=== PATIENT | female | born 1945 | race Caucasian/White ===

== ENCOUNTER 2019-12-23 21:42 | Inpatient (IN) | payer OTHER, MEDICAID, SELFPAY ==
[~2019-12-23] VITALS: Ht 165.1 cm; Wt 134.7 kg
[2019-12-23 21:42] VITALS: BP_SYST 126
[~2019-12-23 21:42] MED LIST: ACET-73 PO; ARIP5TAB10 PO; CALMO120 TP; CAT.1 PO; DOCU250C71 PO; FAMO20TA8 PO; HEPA500015 SUBCUT; LEVO750T45 PO; LEVO75TA7 PO; LISI-600 PO; LORA-258 PO; LOSA25TA18 PO; MOM PO; MONT10TA22 PO; NEU400 PO; OMEP20CA15 PO; SERT25TA PO; SERT50TA PO; ZOLP5TAB2 PO
--- NOTE | 2019-12-24 00:21 | NUR ---
Patient to ER bed 8 to gown for evaluation. Side rails up.
--- NOTE | 2019-12-24 00:30 | NUR ---
Dr. Charles bedside for pt eval
--- NOTE | 2019-12-24 00:35 | NUR ---
Pt G[facility]BER from [facility] her for medical clearance, heading to [facility] after cleared. No other complaints noted VSS no s/s of acute distress Resting on gurney rails up
[2019-12-24 01:09] LABS: BASOPHILS % (AUTO) 0.4 % (0.0-2.0); EOSINOPHILS # (AUTO) 0.1 K/uL (0.0-0.4); EOSINOPHILS % (AUTO) 1.6 % (0.0-4.0); HEMATOCRIT 34.7 % (36-48); HEMOGLOBIN 10.6 g/dL (12.0-16.0); LYMPHOCYTES # (AUTO) 1.2 K/uL (1.0-5.5); LYMPHOCYTES % (AUTO) 14.9 % (20.5-51.5); MEAN CORPUSCULAR HEMOGLOBIN 22 pg (27-31); MEAN CORPUSCULAR HGB CONC 31 % (32-36); MEAN CORPUSCULAR VOLUME 73 fL (79.0-98.0); MONOCYTES % (AUTO) 12.4 % (1.7-9.3); NEUTROPHILS # (AUTO) 5.9 K/uL (1.8-7.7); NEUTROPHILS % (AUTO) 70.7 % (40.0-70.0); PLATELET COUNT (AUTO) 318 K/uL (130-430); RED BLOOD CELL COUNT(AUTO) 4.74 MIL/uL (4.2-6.2); RED CELL DISTRIBUTION WIDTH 18.9 % (9.0-15.0); WHITE BLOOD COUNT (AUTO) 8.3 K/uL (4.8-10.8)
[2019-12-24 01:24] LABS: ANION GAP 6 (5-15); CALCIUM 8.7 mg/dL (8.4-11.0); CHLORIDE 104 mmol/L (98-107); CREATININE 0.68 mg/dL (0.55-1.30); GLUCOSE 113 mg/dL (70-99); POTASSIUM 3.8 mmol/L (3.5-5.1); SODIUM SERUM 137 mmol/L (136-145); UREA NITROGEN, BLOOD 21 mg/dL (8-21)
[2019-12-24 01:29] LABS: ALANINE AMINOTRANSFERASE 14 U/L (12-78); ALBUMIN 2.7 g/dL (3.4-4.8); ALCOHOL, BLOOD < 3 mg/dL (<10); ASPARTATE AMINOTRANSFERASE 16 U/L (10-37); CHOLESTEROL 154 mg/dL (<200); HDL CHOLESTEROL 44 mg/dL (>55); LDL CHOLESTEROL 99 mg/dL (<100); TOTAL BILIRUBIN 0.4 mg/dL (0.0-1.0); TRIGLYCERIDES 68 mg/dL (30-150)
[2019-12-24 01:31] LABS: ACETAMINOPHEN < 1 ug/mL (1-30)
[2019-12-24 01:37] LABS: BILIRUBIN,URINE NEGATIVE (NEGATIVE); BLOOD, URINE 2+ (NEGATIVE); CLARITY/URINE CLEAR (CLEAR); COLOR,URINE YELLOW (YELLOW); GLUCOSE,URINE NEGATIVE (NEGATIVE); KETONES,URINE TRACE (NEGATIVE); LEUKOCYTE ESTERASE ,URINE 3+ (NEGATIVE); NITRITE, URINE POSITIVE (NEGATIVE); PROTEIN URINE 1+ (NEGATIVE)
--- NOTE | 2019-12-24 01:38 | NUR ---
Pt possible shingles during skin assessment, studio operations engineer in charge and Dr. Charles aware
[2019-12-24 01:43] LABS: BACTERIA,URINE MANY /HPF (None Seen); RBC,URINE 50-80 /HPF (0-3); WBC,URINE >100 /HPF (0-3)
[2019-12-24 01:49] LABS: BARBITURATE, URINE NEGATIVE (NEG <=200); BENZODIAZEPINE, URINE NEGATIVE (NEG <=150); CANNABINOID, URINE NEGATIVE (NEG <=50); COCAINE, URINE NEGATIVE (NEG <=150); METHAMPHETAMINES SCREEN,URINE NEGATIVE (NEG <=500); OPIATE, URINE NEGATIVE (NEG <=100); PHENCYCLIDINE SCREEN,URINE NEGATIVE (NEG <=25); UR TRICYCLIC ANTIDEPRESSANTS NEGATIVE (NEG <=300); URINE AMPHETAMINE NEGATIVE (NEG <=500); URINE METHADONE NEGATIVE (NEG <=200); URINE OXYCODONE SCREEN NEGATIVE (NEG <=100); URINE PROPOXYPHENE SCREEN NEGATIVE (NEG <=300)
[2019-12-24] MEDS ORDERED: MORPHINE 4 MG/ML INJ. SYRINGE IVP ONE (02:00)
--- NOTE | 2019-12-24 02:45 | NUR ---
Pt stating feeling little bit better, VSS no s/s of acute distress
[2019-12-24] MEDS ORDERED: ACYCLOVIR IV 500 MG in D5W 100 ML IV ONE (03:15)
--- NOTE | 2019-12-24 03:48 | NUR ---
Dr. Charles bedside for pt update
[2019-12-24] MEDS ORDERED: ACYCLOVIR SODIUM 50 MG/ML VIAL IV ONE (04:04)
--- NOTE | 2019-12-24 04:50 | NUR ---
Pt remains in stable condition, IV antiviral med therapy well tolerated
--- NOTE | 2019-12-24 05:51 | NUR ---
VSS no s/s of acute distress Resting on gurney rails up
--- NOTE | 2019-12-24 06:57 | NUR ---
Pt remains in stable condition
--- NOTE | 2019-12-24 08:04 | NUR ---
Patient will be admitted to care of Dr. Hawkins. Admitted to MS unit. Will go to room 115. Belongings list completed. Complete and up to date summary report printed. SBAR report to be given at bedside with opportunity for questions.
--- NOTE | 2019-12-24 08:21 | NUR ---
Admission patient brought to room 115A via gurney by HAIR SPECIALIST, patient assisted to transfer to bed, bedside SBAR report received from HAIR SPECIALIST, patient resting in bed, respirations even and unlabored on room air, no acute distress noted, patient incontinent of bowel and bladder, patient cleaned, linen and gown changed, patient tolerated well, educated patient on use of call light and asked to call for assistance, patient verbalized understanding, call light in reach, bed in low and locked position, bed alarm on, airborne contact isolation precautions in place.
[2019-12-24 08:30] VITALS: BP_SYST 134
[2019-12-24] MEDS: HEPARIN SODIUM,PORCINE 5,000 UNITS/ML VIAL SUBCUT SCH ×2 (09:00→21:00)
[2019-12-24] MEDS: lisinopriL 20 MG TABLET PO SCH (09:00)
[2019-12-24] MEDS ORDERED: LORazepam 1 MG TABLET PO PRN (09:00)
[2019-12-24] MEDS ORDERED: ONDANSETRON HCL 4 MG/2 ML VIAL IVP PRN (09:00)
[2019-12-24] MEDS ORDERED: MORPHINE 2 MG/ML INJ. SYRINGE IVP PRN (09:00)
[2019-12-24] MEDS ORDERED: METOCLOPRAMIDE HCL 10 MG/2 ML VIAL IVP PRN (09:00)
[2019-12-24] MEDS ORDERED: ZOLPIDEM TARTRATE 5 MG TABLET PO PRN (09:00)
[2019-12-24] MEDS ORDERED: ACETAMINOPHEN 325 MG TABLET PO PRN (09:00)
[2019-12-24] MEDS ORDERED: SERTRALINE HCL 50 MG TABLET PO SCH (09:00)
[2019-12-24] MEDS ORDERED: ARIPiprazole 5 MG TAB PO ONE (09:00)
[2019-12-24] MEDS ORDERED: DOCUSATE SODIUM 250 MG CAPSULE PO ONE (09:00)
[2019-12-24] MEDS: levoFLOXacin 750 MG TABLET PO SCH ×2 (09:00→09:42)
[2019-12-24] MEDS ORDERED: LEVOTHYROXINE SODIUM 0.075 MG TABLET PO ONE (09:15)
[2019-12-24] MEDS: PANTOPRAZOLE SODIUM 40 MG TAB PO ONE ×2 (09:42→10:13)
[2019-12-24] MEDS: GABAPENTIN 300 MG CAPSULE PO SCH ×3 (09:42→21:00)
[2019-12-24] MEDS: DOCUSATE SODIUM 100 MG CAPSULE PO ONE ×2 (09:42→10:13)
[2019-12-24] MEDS: FAMOTIDINE 20 MG TABLET PO SCH ×2 (09:42→21:46)
[2019-12-24] MEDS: MORPHINE 4 MG/ML INJ. SYRINGE IVP PRN ×3 (09:43→18:08)
[2019-12-24] MEDS ORDERED: LOSARTAN POTASSIUM 25 MG TABLET PO ONE (10:00)
[2019-12-24] MEDS ORDERED: SERTRALINE HCL 50 MG TABLET PO ONE (10:15)
--- NOTE | 2019-12-24 10:40 | NUR ---
Physician Rounds Dr. Hawkins at bedside examining patient.
[2019-12-24 12:00] VITALS: BP_SYST 132
--- NOTE | 2019-12-24 12:15 | NUR ---
RN Rounds patient sitting up in bed eating lunch, tolerating well, no acute distress noted.
[2019-12-24] MEDS: cefTRIAXone 1 GM IVPB PREMIX 50 ML IV SCH (12:33)
[2019-12-24] MEDS: MENTHOL/ZINC OXIDE 113 GM OINT. TP SCH ×3 (12:34→21:00)
--- NOTE | 2019-12-24 12:46 | NUR ---
INFECTIOUS CONSULT SPOKE TO DR OLSEN AND MADE AWARE OF CONSULT WITH PATIENT.
[2019-12-24] MEDS: cloNIDine HCL 0.1 MG TABLET PO SCH ×2 (14:00→22:00)
--- NOTE | 2019-12-24 14:05 | NUR ---
Physician Rounds Dr. Carrillo at bedside examining patient, examined rash to right and left posterior thigh and area of red inflammation to right lower abdomen.
--- NOTE | 2019-12-24 14:10 | NUR ---
Emesis patient had episode of emesis, 40ml, educated patient on use and side effects of PRN reglan for vomiting, patient verbalized understanding, patient refusing any medication for nausea/vomiting, Dr. Carrillo offered patient ice chips, patient refusing ice chips, patient states "nothing helps", patient sitting up in bed, respirations even and unlabored on room air, no acute distress noted.
[2019-12-24 14:40] VITALS: BP_SYST 124
--- NOTE | 2019-12-24 16:00 | NUR ---
Skin Scraping/Pictures/Incontinent patient incontinent of bladder, patient cleaned and assisted to reposition, educated patient on purpose and procedure for skin scraping for scabies screen, patient verbalized understanding and is agreeable, skin scraping obtained and taken to lab, patient requesting a piece of white bread, called dietary and provided patient with piece of white bread, patient requesting to have bedside table straightened and cleaned, bedside table straightened and cleaned, patient had small episode of emesis, 10ml, educated patient on use and side effects of PRN reglan and offered patient PRN medication for nausea/vomiting, patient refusing medication, patient states she does not want medication for nausea, provided patient with ice chips, patient complain of pain, patient requesting PRN morphine for pain, PRN morphine brought to bedside, patient then refusing morphine, patient states "maybe later", wasted morphine with second RN witness, patient resting in bed.
[2019-12-24 16:07] VITALS: BP_SYST 139
--- NOTE | 2019-12-24 18:24 | NUR ---
Hussein Hawknis s/w Kalpana
--- NOTE | 2019-12-24 18:30 | NUR ---
Spoke with Physician spoke with Dr. Hawkins, informed him that patient states she has a history of suicide attempts, patient denies any current plans to hurt or kill herself, patient states, "I just wish I wouldn't wake up", when asked if she has a plan she states, "no", orders received for new consult, verified with read back.
--- NOTE | 2019-12-24 19:25 | NUR ---
Closing Note bedside SBAR report given to receiving RN, patient resting in bed, respirations even and unlabored on room air, no acute distress noted, respiratory/contact isolation precautions in place, educated patient on use of call light and asked to call for assistance, patient verbalized understanding, call light in reach, bed in low and locked position, bed alarm on, care endorsed to overnight babysitter RN.
--- NOTE | 2019-12-24 19:45 | NUR ---
OPENING NOTE: RECEIVED SBAR REPORT FROM DAY SHIFT RN. PATIENT IS RESTING IN BED, RESPIRATIONS EVEN AND UNLABORED ON RA. NO S/S ACUTE DISTRESS. PATIENT HAS IV ON L FOREARM, SALINE LOCK. IV DOES NOT FLUSH. PER PATIENT " I DO NOT WANT TO BE POKED AGAIN".PATIENT IS INCONTINENT OF BOWEL AND URINE. PATIENT CLEANED, LINEN AND GOWN CHANGED. PATIENT DID NOT TOLERATED WELL. SHE IS UNABLE TO MOVE DUE TO GENERALIZED PAIN. BED LOCKED IN LOWEST POSITION, CALL LIGHT IS WITH PATIENT. AIRBORNE PRECAUTION IN PLACE.
[2019-12-24 20:00] VITALS: BP_SYST 110
[2019-12-24] MEDS: MILK OF MAGNESIA 30 ML UDC PO SCH (21:00)
[2019-12-24] MEDS: MONTELUKAST 10 MG TABLET PO SCH (21:00)
--- NOTE | 2019-12-24 21:48 | NUR ---
MED PASS: PATIENT GIVEN SCHEDULED EVENING MEDS. PATIENT EDUCATED REGARDING MEDICATIONS ACTIONS AND POTENTIAL SIDE EFFECTS. PATIENT ONLY TOOK COZAAR AND PEPCID, REFUSED TAKING THE REST OF MEDS, PER PATIENT SHE IS UNABLE TO SWALLOW BIG PILLS. IV IS NOT FLUSHING. PER PATIENT REQUEST, WILL CALL MD TO CHANGE PAIN MED TO PO. SAFETY AND FALL PRECAUTIONS IN PLACE. CALL LIGHT IS WITH PATIENT. WILL MONITOR.
[2019-12-24] MEDS: LOSARTAN POTASSIUM 25 MG TABLET PO SCH (21:49)
--- NOTE | 2019-12-24 22:37 | NUR ---
Consultation Paged Reason for Consultation: Suicidal Ideation Was consult called: Y Person who was notified: Haily Consulting Physician: Dr. Hackett (Dr. Wells is structural ironworker) Ordering Physician: Dr. Hawkins
--- NOTE | 2019-12-24 23:25 | NUR ---
SPOKE TO REGARDING PO PAIN MED. NEW ORDER RECEIVED, WILL CARRY OUT.
[2019-12-24] MEDS ORDERED: DIPHENHYDRAMINE HCL 50 MG CAPSULE PO PRN (23:30)
[2019-12-25] MEDS: OXYCODONE/ACETAMINOPHEN 5-325 TABLET PO PRN ×4 (00:01→18:08)
--- NOTE | 2019-12-25 00:05 | NUR ---
PAIN MED GIVEN TO PATIENT, PATIENT TOLERATED WELL. NO S/S ACUTE DISTRESS NOTED. WILL MONITOR.
--- NOTE | 2019-12-25 02:30 | NUR ---
RN ROUNDS: PATIENT IS SLEEPING, BREATHING UNLABORED AND EVEN ON RA. NO S/S ACUTE DISTRESS NOTED.SAFETY AND FALL PRECAUTIONS IN PLACE. CALL LIGHT IS WITH PATIENT. WILL CONTINUE MONITORING.
[2019-12-25 04:00] VITALS: BP_SYST 127
--- NOTE | 2019-12-25 04:30 | NUR ---
RN ROUNDS: PATIENT IS AWAKE. PATIENT RE-POSITIONED, PT TOLERATED WELL. DIETARY ORDER COMPLETED. SAFETY AND FALL PRECAUTIONS MAINTAINED, WILL CONTINUE MONITORING.
[2019-12-25] MEDS: cloNIDine HCL 0.1 MG TABLET PO SCH ×3 (06:00→21:28)
[2019-12-25] MEDS: LEVOTHYROXINE SODIUM 0.075 MG TABLET PO SCH (06:33)
--- NOTE | 2019-12-25 06:51 | NUR ---
CLOSING NOTE: PATIENT IS AWAKE, RESTING IN THE BED COMFORTABLY. THYROID AND PAIN MEDICATION GIVEN TO PATIENT. PATIENT TOLERATED WELL. NO S/S ACUTE DISTRESS NOTED AT THIS TIME. BED LOCKED IN LOWEST POSITION WITH BED ALARM ON. CALL LIGHT IS WITH PATIENT. WILL ENDORSE PATIENT CARE TO INCOMING NURSE.
--- NOTE | 2019-12-25 07:14 | NUR ---
Nutrition Update Ed Scale 13 noted. Pt admitted for Shingles Diet: Regular BMI: 49.8 kg/m2 RD to follow per nutrition care standards.
--- NOTE | 2019-12-25 08:00 | NUR ---
PATIENT IS AAO x4. ABLE TO EXPRESS NEEDS. ALL NEEDS MET AT THIS TIME. THIS PATIENT REFUSED XRAY. WILL CONTINUE TO MONITOR. CHARGE NURSE MADE AWARE AND STATED ROSITA DAUGHERTY WILL INFORMED.
[2019-12-25] MEDS: MENTHOL/ZINC OXIDE 113 GM OINT. TP SCH ×4 (08:30→21:00)
--- NOTE | 2019-12-25 08:46 | NUR ---
PATIENT REFUSED NEW IV INSERTION. CHARGE NURSE MADE AWARE. RISKS AND BENEFITS EXPLAINED. PATIENT REFUSED. CHARGE NURSE MADE AWARE.
[2019-12-25] MEDS: DOCUSATE SODIUM 100 MG CAPSULE PO SCH (09:00)
[2019-12-25] MEDS: GABAPENTIN 300 MG CAPSULE PO SCH ×3 (09:00→21:00)
[2019-12-25] MEDS: FAMOTIDINE 20 MG TABLET PO SCH ×2 (09:00→21:00)
[2019-12-25] MEDS ORDERED: ARIPiprazole 5 MG TAB PO SCH (09:00)
[2019-12-25] MEDS: SERTRALINE HCL 50 MG TABLET PO SCH (09:38)
[2019-12-25] MEDS: levoFLOXacin 750 MG TABLET PO SCH (09:39)
[2019-12-25] MEDS: PANTOPRAZOLE SODIUM 40 MG TAB PO SCH (09:39)
[2019-12-25] MEDS: MORPHINE 4 MG/ML INJ. SYRINGE IVP PRN (09:40)
[2019-12-25] MEDS: lisinopriL 20 MG TABLET PO SCH (09:42)
[2019-12-25] MEDS: LOSARTAN POTASSIUM 25 MG TABLET PO SCH ×2 (09:43→21:00)
[2019-12-25] MEDS: HEPARIN SODIUM,PORCINE 5,000 UNITS/ML VIAL SUBCUT SCH ×2 (09:44→21:00)
--- NOTE | 2019-12-25 10:00 | NUR ---
THIS PATIENT REFUSED ALL AM MEDICATIONS AT THIS TIME. PATIENT IS HOSTILE AND ANGRY. CHARGE NURSE MADE AWARE. WILL ATTEMPT MEDICATION PASS WHEN PATIENT GETS PAIN PILLS AT 1230.
--- NOTE | 2019-12-25 10:46 | NUR ---
CONSULTATION PAGED/CALLED Reason for Consultation: [] agitation Person Who was Notified: [] Linda Consulting Physician: [] Dr PATINO Industry Analyst Specialty: [] PSYCH Ordering Physician: [] Dr Hawkins
--- NOTE | 2019-12-25 10:48 | NUR ---
SS NOTES: LASER PRINTING OPERATOR was referred by nursing to see patient for suicide risk. LASER PRINTING OPERATOR phoned pt @ [phone], pt was unable to speak at this time but LASER PRINTING OPERATOR was able to gather some demographic information from friend and facility. Pt has been a resident at [facility] since 2017. Pt is dependent on all her ADL's and her only source of income is her social security. Pt is under fpc care at the facility. Pt has history of anxiety and depression and sees a therapist at the facility. Pt's only emergency contact is her friend Sierra Barajas @ [phone], who makes medical decisions for her if she is unable. Per Sierra, pt has a daughter who she is estranged from for 5 years now (Sasha Carter [phone]). Pt does not have a POA. LASER PRINTING OPERATOR will follow up regarding suicide risk. Addendum: 12/25/19 at 1320 by Ajay MAYORGA LASER PRINTING OPERATOR spoke with patient who stated she would like to go back to [facility] when discharged. Pt is pending psych consult. LASER PRINTING OPERATOR inquired about pt's mental health, pt denies any suicidal ideation currently but stated she has suicide ideation "on and off". LASER PRINTING OPERATOR wanted to explore a little more, but pt hung up stating she has medication to receive.
[2019-12-25 12:00] VITALS: BP_SYST 118
[2019-12-25] MEDS: cefTRIAXone 1 GM IVPB PREMIX 50 ML IV SCH (12:00)
--- NOTE | 2019-12-25 12:45 | NUR ---
ASSISTED PATIENT TO PLACE CLEAN LINEN IN BED. PROVIDED WATER REQUESTED. PAIN MEDICATION GIVEN ORDERED. CALL LIGHT WITH PATIENT, BED IN LOWEST POSITION. PATIENT REMAINS ON ISOLATION. WILL CONTINUE TO MONITOR.
--- NOTE | 2019-12-25 14:00 | NUR ---
PATIENT WATCHING TELEVISION. DENIES PAIN AT THIS TIME. WILL CONTINUE TO MONITOR.
[2019-12-25 16:00] VITALS: BP_SYST 120
--- NOTE | 2019-12-25 16:13 | NUR ---
PATIENT REFUSING MEDICATIONS EXCEPT PAIN PILLS. RISKS NAD BENEFITS EXPLAINED. CHARGE NURSE, JUANITA MADE AWARE.
--- NOTE | 2019-12-25 18:39 | NUR ---
PATIENT IN BED. TIFFANIE MEDIATION GIVEN ORDERED. WILL CONTINUE TO MONITOR. PATIENT STILL REFUSING ORDERED MEDICATIONS. RISKS AND BENEFITS EXPLAINED. CHARGE NURSE MADE AWARE.
--- NOTE | 2019-12-25 20:00 | NUR ---
Pt was received lying in bed fully awake, alert and oriented x4. Pt is on room air and no respiratory distress noted. Pt refused to have her vital signs taken and refused physical assessment. Pt also stated she does not want any medications. Pt requested IV Morphine and IV Acyclovir, but refused IV restart. Pt stated the only nurse that is good at starting IV on her is Maddy in ER. Per pt's request, RN contacted ER and spoke with Jasmin who stated Maddy is off at this time. Pt was notified Maddy is off per ER. Call light is with pt and bed is in the lowest/locked positions. Pt was instructed not to get out of bed without calling for assistance and pt verbalized understanding. Pt stated she doesn't get out of bed because she is unable to walk. Pt had multiple questions and all her questions were answered.
[2019-12-25] MEDS: MILK OF MAGNESIA 30 ML UDC PO SCH (21:00)
[2019-12-25] MEDS: MONTELUKAST 10 MG TABLET PO SCH (21:00)
--- NOTE | 2019-12-25 22:00 | NUR ---
Pt is resting quietly in bed. Pt is still refusing vital signs, medications and physical assessment. Pt wanted to know if MD ordered Acyclovir IV. Pt was informed Acyclovir is not on her EMAR. Pt stated Dr. Brodie Carrillo needs to give her "Acyclovir capsules." Fall and safety precautions are in place.
--- NOTE | 2019-12-26 | NUR ---
Pt remains awake and not in any distress. No c/o pain or discomfort at this time. Call light is with pt and bed alarm is on.
[2019-12-26] MEDS: OXYCODONE/ACETAMINOPHEN 5-325 TABLET PO PRN ×4 (01:21→20:38)
--- NOTE | 2019-12-26 01:21 | NUR ---
Percocet 5/325mg 1 tablet given po per pt's request for c/o 08/22 generalized body ache. Call light is with pt and bed alarm is on. Pt was instructed not to get out of bed without calling for assistance and pt verbalized understanding. Call light is with pt and bed alarm is on.
--- NOTE | 2019-12-26 03:30 | NUR ---
Pt is sleeping without any respiratory distress noted. Call light is with pt and bed alarm is on.
[2019-12-26] MEDS: ACYCLOVIR 400 MG TABLET PO SCH ×6 (05:29→22:13)
[2019-12-26] MEDS: cloNIDine HCL 0.1 MG TABLET PO SCH ×3 (05:29→22:00)
--- NOTE | 2019-12-26 05:34 | NUR ---
Pt took scheduled Acyclovir tablet after she initially refused it. Pt initially insisted she wanted it in capsule form. No difficulty swallowing noted. Pt refused other medications, including scheduled AM Levothyroxine.
[2019-12-26] MEDS: LEVOTHYROXINE SODIUM 0.075 MG TABLET PO SCH (05:40)
--- NOTE | 2019-12-26 06:50 | NUR ---
Pt is resting quietly in bed. Call light is with pt and bed alarm is on.
[2019-12-26 08:00] VITALS: BP_SYST 119
--- NOTE | 2019-12-26 08:00 | NUR ---
A/OX3,AFEBRILE,VSS,RESTING IN BED,C/O GENERALIZED PAIN,GIVE PERCOCET 1 TAB PO PRN ORDER FOR PAIN,NEEDS ATTENDED,CALL LIGHT & PERSONAL ITEMS WITHIN PT REACH,SAFETY MAINTAINED. CONTINUE TO MONITOR PT.
[2019-12-26] MEDS: ARIPiprazole 5 MG TAB PO SCH ×2 (08:30→09:00)
[2019-12-26] MEDS: SERTRALINE HCL 50 MG TABLET PO SCH (08:30)
[2019-12-26] MEDS: levoFLOXacin 750 MG TABLET PO SCH (08:30)
[2019-12-26] MEDS: MENTHOL/ZINC OXIDE 113 GM OINT. TP SCH ×2 (08:30→12:30)
[2019-12-26] MEDS: GABAPENTIN 300 MG CAPSULE PO SCH ×4 (08:30→21:00)
[2019-12-26] MEDS: PANTOPRAZOLE SODIUM 40 MG TAB PO SCH (08:31)
[2019-12-26] MEDS: FAMOTIDINE 20 MG TABLET PO SCH ×3 (08:31→21:00)
[2019-12-26] MEDS: lisinopriL 20 MG TABLET PO SCH (09:00)
[2019-12-26] MEDS: LOSARTAN POTASSIUM 25 MG TABLET PO SCH ×2 (09:00→21:00)
[2019-12-26] MEDS: DOCUSATE SODIUM 100 MG CAPSULE PO SCH (09:00)
[2019-12-26] MEDS: HEPARIN SODIUM,PORCINE 5,000 UNITS/ML VIAL SUBCUT SCH ×2 (09:00→21:00)
--- NOTE | 2019-12-26 10:00 | NUR ---
PT REFUSED AM MEDS EXCEPT ACYCLOVIR,REFUSED IV INSERTION FOR ANTIBIOTIC.
[2019-12-26 12:00] VITALS: BP_SYST 138
[2019-12-26] MEDS: cefTRIAXone 1 GM IVPB PREMIX 50 ML IV SCH (12:00)
--- NOTE | 2019-12-26 12:00 | NUR ---
VSS,RESTING WELL IN BED,C/O STOMACH DISCOMFORT BUT REFUSED ANY MEDS FOR STOMACH UPSET. HOURLY ROUNDS MADE,SAFETY MAINTAINED
--- NOTE | 2019-12-26 14:30 | NUR ---
C/O PAIN AGAIN AND ASKING FOR PERCOCET,GIVE PERCOCET 1 TAB PO PRN ORDER FOR PAIN. CONTINUE TO MONITOR PT.
[2019-12-26 16:00] VITALS: BP_SYST 120
--- NOTE | 2019-12-26 16:00 | NUR ---
RECEIVED CRITICAL LAB RESULT + URINE E COLI /MDRO, CALLED AND NOTIFIED OF RESULT. PT STILL REFFUSED ANTIBIOTIC AND IV START,ONLY TAKES ACYCLOVIR FOR SHINGLES.
--- NOTE | 2019-12-26 18:00 | NUR ---
PT NEEDY AND DEMANDING,SCRAEMING AND YELLING AT TIMES,OFFERED BREAD AND CHOCOLATE PUDDING PER PT REQUSTS,INCONTINENT OF URINE,PERICARE PROVIDED,PT REFUSED ANY OINTMENT OR LOTION FOR SKIN CARE.
--- NOTE | 2019-12-26 18:45 | NUR ---
Dietitian Recommendations *Continue Regular diet *Encourage PO intake as tolerated *[place] food preferences as able Please see Nutrition Assessment for further details. LT, RD
[2019-12-26 20:00] VITALS: BP_SYST 115
[2019-12-26] MEDS: CLOTRIMAZOLE/BETAMETHASONE 45 GM TOPICAL CREAM TP SCH (20:36)
[2019-12-26] MEDS: MONTELUKAST 10 MG TABLET PO SCH (21:00)
[2019-12-26] MEDS: MILK OF MAGNESIA 30 ML UDC PO SCH (21:00)
[2019-12-27] MEDS: OXYCODONE/ACETAMINOPHEN 5-325 TABLET PO PRN ×4 (02:38→20:47)
[2019-12-27] MEDS: cloNIDine HCL 0.1 MG TABLET PO SCH ×3 (06:00→22:00)
[2019-12-27] MEDS: LEVOTHYROXINE SODIUM 0.075 MG TABLET PO SCH (06:26)
[2019-12-27] MEDS: ACYCLOVIR 400 MG TABLET PO SCH ×5 (06:27→20:47)
[2019-12-27 07:03] VITALS: BP_SYST 121
--- NOTE | 2019-12-27 07:30 | NUR ---
OPENING NOTES: RECEIVED PATIENT FROM THREAD SINGER NURSE. PATIENT IS AWAKE AND ALERT x4 LAYING DOWN IN BED. PATIENT IS TOLERATING OXYGEN ON ROOM AIR WITH NO SIGNS OF DISTRESS OR SHORTNESS OF BREATH NOTED. PATIENT HAS NO IV SITE. MD AWARE. PATIENT COMPLAINS OF PAIN. INFORMED PATIENT I WILL GIVE PAIN MEDICINE. PATIENT VERBALIZED UNDERSTANDING. PATIENT IN STABLE CONDITION. BED LOCKED IN LOWEST POSITION WITH CALL LIGHT IN REACH. SAFETY, FALL, ASPIRATION AND CONTACT PRECAUTIONS ARE IN PLACE. WILL CONTINUE TO MONITOR PATIENT FOR ANY CHANGES.
[2019-12-27 08:00] VITALS: BP_SYST 131
[2019-12-27] MEDS: MENTHOL/ZINC OXIDE 113 GM OINT. TP SCH ×4 (08:30→21:00)
[2019-12-27] MEDS: PANTOPRAZOLE SODIUM 40 MG TAB PO SCH (09:00)
[2019-12-27] MEDS: HEPARIN SODIUM,PORCINE 5,000 UNITS/ML VIAL SUBCUT SCH ×2 (09:00→21:00)
[2019-12-27] MEDS: levoFLOXacin 750 MG TABLET PO SCH (09:00)
[2019-12-27] MEDS: CLOTRIMAZOLE/BETAMETHASONE 45 GM TOPICAL CREAM TP SCH ×2 (09:00→21:00)
[2019-12-27] MEDS: ARIPiprazole 5 MG TAB PO SCH (09:00)
[2019-12-27] MEDS: GABAPENTIN 300 MG CAPSULE PO SCH ×3 (09:00→21:00)
[2019-12-27] MEDS: DOCUSATE SODIUM 100 MG CAPSULE PO SCH (09:00)
[2019-12-27] MEDS: lisinopriL 20 MG TABLET PO SCH (09:00)
[2019-12-27] MEDS: LOSARTAN POTASSIUM 25 MG TABLET PO SCH ×2 (09:00→21:00)
[2019-12-27] MEDS: FAMOTIDINE 20 MG TABLET PO SCH ×2 (09:00→21:00)
[2019-12-27] MEDS: SERTRALINE HCL 50 MG TABLET PO SCH (10:10)
--- NOTE | 2019-12-27 10:20 | NUR ---
RN ROUNDS: PATIENT IS AWAKE AND ALERT x4 LAYING DOWN IN BED. PATIENT IS TOLERATING OXYGEN ON ROOM AIR WITH NO SIGNS OF DISTRESS OR SHORTNESS OF BREATH NOTED. PATIENT GIVEN WATER AND BLANKET WAS REMOVED PER REQUEST. PATIENT IN STABLE CONDITION. WILL CONTINUE TO MONITOR PATIENT FOR ANY CHANGES.
--- NOTE | 2019-12-27 11:15 | NUR ---
CONSULTATION PAGED REASON FOR CONSULTATION:CHEST PAIN WAS CONSULT CALLED?Y PERSON WHO WAS NOTIFIED:ZULEMA CONSULTING PHYSICIAN:JUDE KNOX PLASTIC MAKER SPECIALTY:CARDIO PLASTIC MAKER PHONE NUMBER:[phone] ORDERING PHYSICIAN:XENIA BERNAL
--- NOTE | 2019-12-27 11:20 | NUR ---
LAB DRAW: PATIENT REFUSING TO HAVE HER LABS DRAWN FOR TROPONIN LEVEL. TWO DIFFERENT BENCH WORKER HELPER'S ATTEMPTED. DR. ROSITA FLORES.
--- NOTE | 2019-12-27 11:49 | NUR ---
TELE BOX: PATIENT REFUSED TO LET ME PUT THE TELEMETRY BOX ON. INFORMED THE PATIENT THAT IT WILL HELP US MONITOR HER HEART RATE. PATIENT CONTINUED TO REFUSE AND STATED IT HURTS. WILL NOTIFY
[2019-12-27] MEDS: cefTRIAXone 1 GM IVPB PREMIX 50 ML IV SCH (11:50)
[2019-12-27 12:00] VITALS: BP_SYST 126
--- NOTE | 2019-12-27 12:10 | NUR ---
RN ROUNDS: PATIENT IS AWAKE AND ALERT x4 LAYING DOWN IN BED. PATIENT IS TOLERATING OXYGEN ON ROOM AIR WITH NO SIGNS OF DISTRESS OR SHORTNESS OF BREATH NOTED. NO IV SITE. PATIENT IN STABLE CONDITION. WILL CONTINUE TO MONITOR PATIENT FOR ANY CHANGES.
--- NOTE | 2019-12-27 14:35 | NUR ---
RN ROUNDS: PATIENT IS AWAKE AND ALERT x4 LAYING DOWN IN BED. PATIENT STATES SHE NEEDS TO BE CHANGED. STATED I WILL INFORM ARASELI. PATIENT TOOK HER PRN PAIN MEDICINE AND SCHEDULED MEDICINE. TOLERATED IT WELL. PATIENT IN STABLE CONDITION. WILL CONTINUE TO MONITOR PATIENT FOR ANY CHANGES.
[2019-12-27 16:00] VITALS: BP_SYST 142
--- NOTE | 2019-12-27 16:47 | NUR ---
PATIENT IS AWAKE AND ALERT x4 LAYING DOWN IN BED. PATIENT IS TOLERATING OXYGEN ON ROOM AIR WITH NO SIGNS OF DISTRESS OR SHORTNESS OF BREATH NOTED. PATIENT IN STABLE CONDITION. WILL CONTINUE TO MONITOR PATIENT FOR ANY CHANGES. Addendum: 12/27/19 at 1649 by Elicia Carrera RN RN ROUNDS:
--- NOTE | 2019-12-27 18:42 | NUR ---
CLOSING NOTES: PATIENT IS AWAKE AND ALERT x4 LAYING DOWN IN BED. PATIENT IS TOLERATING OXYGEN ON ROOM AIR WITH NO SIGNS OF DISTRESS OR SHORTNESS OF BREATH NOTED. PATIENT STILL HAS NO IV SITE. MD AWARE. PATIENT REFUSES TO WEAR TELEMETRY BOX. PATIENT WANTS TO KNOW WHEN HER NEXT PAIN MEDICATION IS DUE. INFORMED PATIENT AROUND 2230. PATIENT VERBALIZED UNDERSTANDING. PATIENT IN STABLE CONDITION. BED LOCKED IN LOWEST POSITION WITH CALL LIGHT IN REACH. SAFETY, FALL, ASPIRATION AND CONTACT PRECAUTIONS REMAINED IN PLACE THROUGHOUT THE SHIFT. WILL ENDORSE PATIENT CARE TO ONCOMING AUTOMOTIVE PARTS SALESPERSON NURSE.
--- NOTE | 2019-12-27 19:25 | NUR ---
OPENING NOTES: RECEIVED PATIENT FROM DAY SHIFT NURSE. PATIENT IS AWAKE AND ALERT x4 LAYING DOWN IN BED. PATIENT IS TOLERATING OXYGEN ON ROOM AIR WITH NO SIGNS OF DISTRESS OR SHORTNESS OF BREATH NOTED. PATIENT HAS NO IV SITE. MD AWARE. PATIENT IN STABLE CONDITION. BED LOCKED IN LOWEST POSITION WITH CALL LIGHT IN REACH. SAFETY, FALL, ASPIRATION AND CONTACT PRECAUTIONS ARE IN PLACE. WILL CONTINUE TO MONITOR PATIENT FOR ANY CHANGES.
[2019-12-27 20:00] VITALS: BP_SYST 140
[2019-12-27] MEDS: MONTELUKAST 10 MG TABLET PO SCH (21:00)
[2019-12-27] MEDS: MILK OF MAGNESIA 30 ML UDC PO SCH (21:00)
--- NOTE | 2019-12-27 23:39 | NUR ---
INCONTINENCE CARE/REFUSED VITALS PT INCONTINENT OF URINE. PERICARE PROVIDED. PT STATED, "DON'T USE ANY CREAMS OR POWDERS ON ME!". PT REPOSITIONED FOR COMFORT. PT REFUSED TO HAVE MIDNIGHT VITAL SIGNS TAKEN. SAFETY, FALL, AND CONTACT PRECAUTIONS MAINTAINED. WILL MONITOR.
[2019-12-28] MEDS: OXYCODONE/ACETAMINOPHEN 5-325 TABLET PO PRN ×2 (03:09→09:56)
--- NOTE | 2019-12-28 08:00 | NUR ---
A/Ox3,anxious,agitated refused vital sign,resting in bed,no acute distress noted,needs attended,call light & personal items within pt reach,safety maintained.continue to monitor pt.
[2019-12-28] MEDS: MENTHOL/ZINC OXIDE 113 GM OINT. TP SCH ×2 (08:30→12:30)
[2019-12-28] MEDS: PANTOPRAZOLE SODIUM 40 MG TAB PO SCH (09:00)
[2019-12-28] MEDS: DOCUSATE SODIUM 100 MG CAPSULE PO SCH (09:00)
[2019-12-28] MEDS: GABAPENTIN 300 MG CAPSULE PO SCH ×2 (09:00→15:00)
[2019-12-28] MEDS: lisinopriL 20 MG TABLET PO SCH (09:00)
[2019-12-28] MEDS: CLOTRIMAZOLE/BETAMETHASONE 45 GM TOPICAL CREAM TP SCH (09:00)
[2019-12-28] MEDS: ARIPiprazole 5 MG TAB PO SCH (09:00)
[2019-12-28] MEDS: levoFLOXacin 750 MG TABLET PO SCH (09:00)
[2019-12-28] MEDS: HEPARIN SODIUM,PORCINE 5,000 UNITS/ML VIAL SUBCUT SCH (09:00)
[2019-12-28] MEDS: LOSARTAN POTASSIUM 25 MG TABLET PO SCH (09:00)
[2019-12-28] MEDS: FAMOTIDINE 20 MG TABLET PO SCH (09:00)
[2019-12-28] MEDS: SERTRALINE HCL 50 MG TABLET PO SCH (09:56)
[2019-12-28] MEDS: ACYCLOVIR 400 MG TABLET PO SCH ×2 (09:57→14:00)
--- NOTE | 2019-12-28 10:00 | NUR ---
pt refused all am meds only took percocet prn for pain,incontinent of urine,pericare provided.
[2019-12-28 12:00] VITALS: BP_SYST 136
[2019-12-28] MEDS: cefTRIAXone 1 GM IVPB PREMIX 50 ML IV SCH (12:00)
--- NOTE | 2019-12-28 12:00 | NUR ---
pt resting in bed,refused care,said "I don't want everything"continue to monitor pt.
--- NOTE | 2019-12-28 13:49 | NUR ---
Discharge Planning: DCP faxed pt referral to [facility] ([phone]) DCP to follow up Addendum: 12/28/19 at 1712 by Cristina Bradford DP Patient [facility] ([phone]) going to [address], transportation arranged with [facility] ([phone]) 5:00pm BLS. Patient packet taken to nurse station.
[2019-12-28] MEDS: cloNIDine HCL 0.1 MG TABLET PO SCH (14:00)
--- NOTE | 2019-12-28 14:00 | NUR ---
came and seen pt.orders received and carried out.
[2019-12-28] MEDS ORDERED: AMOX-426 PO (15:59)
--- NOTE | 2019-12-28 16:00 | NUR ---
pt refused vital sign again and incontinent care per WEIGHT AND BALANCE CONTROL AGENT,covered self with blanket and resistant to care.
--- NOTE | 2019-12-28 17:40 | NUR ---
d/c back to [facility],report called and endorsed to Christoph DE LEÓN in [facility] by phone. leaving via ambulance,all belongings given and returned to pt upon d/c.
[2019-12-28] MEDS ORDERED: AMOXICILLIN/CLAVULANATE POTASSIUM 875 MG TABLET PO SCH (21:00)
== END 2019-12-28 17:50 | DRG 603 ==
LOC: SED 21:42 → SMU 12-24 07:08 → STU 12-27 11:18 → SMU 12-27 19:38
PROVIDERS: ADMIT Internal Medicine Hospice and Palliative Medicine; ATTEND Internal Medicine Hospice and Palliative Medicine
DX: L03.311 Cellulitis of abdominal wall (principal); N39.0 Urinary tract infection, site not specified; F32.3 Major depressive disorder, single episode, severe with psychotic features; Z68.42 Body mass index [BMI] 45.0-49.9, adult; E44.0 Moderate protein-calorie malnutrition; B02.9 Zoster without complications; J44.9 Chronic obstructive pulmonary disease, unspecified; F39 Unspecified mood [affective] disorder; N18.9 Chronic kidney disease, unspecified; B95.62 Methicillin resistant Staphylococcus aureus infection as the cause of diseases classified elsewhere; E66.01 Morbid (severe) obesity due to excess calories; E78.5 Hyperlipidemia, unspecified; F32.9 Major depressive disorder, single episode, unspecified; F60.9 Personality disorder, unspecified; G89.29 Other chronic pain; I12.9 Hypertensive chronic kidney disease with stage 1 through stage 4 chronic kidney disease, or unspecified chronic kidney disease; Z79.899 Other long term (current) drug therapy; Z81.8 Family history of other mental and behavioral disorders; Z86.73 Personal history of transient ischemic attack (TIA), and cerebral infarction without residual deficits; Z87.891 Personal history of nicotine dependence; Z91.19 Patient's noncompliance with other medical treatment and regimen; Z74.01 Bed confinement status
CPT/HCPCS: 36415; 71045; 80053; 80061; 80307; 81000-TC; 82140-TC; 82728; 83036; 85025; 87081; 87086; 87210-TC; 93005; 96365; 96375; 99285; G0480; G0481; G0482; J0133; J0696; J1644; J2270; Q0163

== ENCOUNTER 2021-03-18 22:09 | Emergency (ER) | payer OTHER, MEDICAID, SELFPAY ==
[~2021-03-18 22:09] MED LIST changes: +AMOX-426 PO; -LEVO750T45 PO; -LISI-600 PO; +LISI20TA30 PO
--- NOTE | 2021-03-18 22:09 | NUR ---
Patient to ER bed 6 to gown for evaluation. Side rails up. Report given to self.
[2021-03-18 22:15] VITALS: BP_SYST 131
--- NOTE | 2021-03-18 23:20 | NUR ---
ER Dr. Irvin at bedside examining patient.
[2021-03-18] MEDS ORDERED: MORPHINE 4 MG INJ. 4 MG/ML VIAL IM ONE (23:30)
[2021-03-18] MEDS ORDERED: cefTRIAXone 1 GM in LIDOCAINE 1%, 20 ML MDV 2.1 ML IM ONE (23:30)
--- NOTE | 2021-03-18 23:50 | NUR ---
Patient placed on bedpan to collect urine sample. Urine sample collected and sent to lab. Patient had small hard bowel movement. Patient cleaned off with warm water and wiped off with dry towel. Patient given clean linens.
[2021-03-19 00:12] LABS: BILIRUBIN,URINE NEGATIVE (NEGATIVE); CLARITY/URINE CLOUDY (CLEAR); COLOR,URINE YELLOW (YELLOW); GLUCOSE,URINE NEGATIVE (NEGATIVE); KETONES,URINE TRACE (NEGATIVE); LEUKOCYTE ESTERASE ,URINE 2+ (NEGATIVE); NITRITE, URINE POSITIVE (NEGATIVE); PROTEIN URINE TRACE (NEGATIVE); UROBILINOGEN,URINE 0.2 (0.2-1.0)
[2021-03-19] MEDS ORDERED: MORPHINE 4 MG INJ. 4 MG/ML VIAL ONE (00:26)
--- NOTE | 2021-03-19 00:36 | NUR ---
Patient medicated per MD orders. Patient tolerated well. Will continue to monitor for adverse reaction
[2021-03-19 00:39] LABS: BLOOD, URINE TRACE (NEGATIVE)
[2021-03-19 00:41] LABS: BACTERIA,URINE MANY /HPF (None Seen); MUCUS,URINE None Seen /LPF (None Seen); WBC,URINE 50-80 /HPF (0-3)
--- NOTE | 2021-03-19 00:52 | NUR ---
[facility] ETA [id number]
[2021-03-19] MEDS ORDERED: NITR-85 PO (01:06)
--- NOTE | 2021-03-19 01:12 | NUR ---
Report given to [facility] ambulance
--- NOTE | 2021-03-19 01:12 | NUR ---
Report given to GENET Colunga at [facility] prior to transport to facility
[2021-03-19 01:13] VITALS: BP_SYST 139
--- NOTE | 2021-03-19 01:13 | NUR ---
Patient given written and verbal discharge instructions and verbalizes understanding. ER MD discussed with patient the results and treatment provided. Patient in stable condition. ID arm band removed. NO IV Rx of Macrobid given. Patient educated on pain management and to follow up with PMD. Pain Scale 0/10. Opportunity for questions provided and answered. Medication side effect fact sheet provided.
== END 2021-03-19 01:13 | disposition home or self-care (01) ==
LOC: SED 22:09
DX: N39.0 Urinary tract infection, site not specified (principal); I10 Essential (primary) hypertension; J44.9 Chronic obstructive pulmonary disease, unspecified; K21.9 Gastro-esophageal reflux disease without esophagitis; Z88.1 Allergy status to other antibiotic agents; Z88.2 Allergy status to sulfonamides; Z88.6 Allergy status to analgesic agent; Z88.8 Allergy status to other drugs, medicaments and biological substances; Z79.899 Other long term (current) drug therapy
CPT/HCPCS: 81000; 87086; 96372; 99285; J0696; J2001; J2270

== ENCOUNTER 2021-05-20 16:41 | Emergency (ER) | payer OTHER, MEDICAID, SELFPAY ==
[~2021-05-20] VITALS: Ht 167.6 cm; Wt 78.0 kg
[~2021-05-20 16:41] MED LIST changes: +NITR-85 PO
[2021-05-20 16:46] VITALS: BP_SYST 129
[2021-05-20 17:26] LABS: BASOPHILS # (AUTO) 0.1 K/uL (0.0-0.2); BASOPHILS % (AUTO) 1.2 % (0.0-2.0); EOSINOPHILS # (AUTO) 0.1 K/uL (0.0-0.4); EOSINOPHILS % (AUTO) 2.8 % (0.0-4.0); HEMATOCRIT 35.7 % (36-48); HEMOGLOBIN 11.2 g/dL (12.0-16.0); LYMPHOCYTES # (AUTO) 1.9 K/uL (1.0-5.5); LYMPHOCYTES % (AUTO) 36.8 % (20.5-51.5); MEAN CORPUSCULAR HEMOGLOBIN 23 pg (27-31); MEAN CORPUSCULAR HGB CONC 31 % (32-36); MEAN CORPUSCULAR VOLUME 73 fL (79.0-98.0); MONOCYTES # (AUTO) 0.5 K/uL (0.0-1.0); MONOCYTES % (AUTO) 10.1 % (1.7-9.3); NEUTROPHILS # (AUTO) 2.5 K/uL (1.8-7.7); NEUTROPHILS % (AUTO) 49.1 % (40.0-70.0); PLATELET COUNT (AUTO) 286 K/uL (130-430); RED BLOOD CELL COUNT(AUTO) 4.93 MIL/uL (4.2-6.2); RED CELL DISTRIBUTION WIDTH 18.7 % (9.0-15.0); WHITE BLOOD COUNT (AUTO) 5.1 K/uL (4.8-10.8)
[2021-05-20 18:04] VITALS: BP_SYST 134
[2021-05-20 18:15] LABS: ANION GAP 11 (5-15); CALCIUM 8.2 mg/dL (8.4-11.0); CHLORIDE 106 mmol/L (98-107); GLUCOSE 98 mg/dL (70-99); POTASSIUM 4.3 mmol/L (3.5-5.1); SODIUM SERUM 143 mmol/L (136-145); UREA NITROGEN, BLOOD 8 mg/dL (8-21)
[2021-05-20 18:32] LABS: ALANINE AMINOTRANSFERASE 8 U/L (12-78); ASPARTATE AMINOTRANSFERASE 17 U/L (10-37); LIPASE 94 U/L (73-393); THYROID STIMULATING HORMONE 7.77 uIu/mL (0.36-3.74); TOTAL BILIRUBIN 0.3 mg/dL (0.0-1.0)
[2021-05-20 18:45] LABS: BILIRUBIN,URINE NEGATIVE (NEGATIVE); BLOOD, URINE NEGATIVE (NEGATIVE); CLARITY/URINE CLEAR (CLEAR); COLOR,URINE YELLOW (YELLOW); GLUCOSE,URINE NEGATIVE (NEGATIVE); KETONES,URINE TRACE (NEGATIVE); LEUKOCYTE ESTERASE ,URINE NEGATIVE (NEGATIVE); NITRITE, URINE NEGATIVE (NEGATIVE); PH,URINE 6.5 (5.0-8.0); PROTEIN URINE NEGATIVE (NEGATIVE); UROBILINOGEN,URINE 0.2 (0.2-1.0)
[2021-05-20] MEDS ORDERED: AMOX250S64 PO (19:08)
[2021-05-20] MEDS ORDERED: AMOXICILLIN/CLAVULANATE POTASSIUM 250 MG/5 ML, 75 ML BTL PO ONE (19:15)
[2021-05-20] MEDS ORDERED: HYDROmorphone 1 MG/ML INJ. CARTRIDGE IVP ONE (22:30)
== END 2021-05-21 00:32 | disposition home or self-care (01) ==
LOC: SED 16:41
DX: J18.1 Lobar pneumonia, unspecified organism (principal); D64.9 Anemia, unspecified; I10 Essential (primary) hypertension; J44.9 Chronic obstructive pulmonary disease, unspecified; K21.9 Gastro-esophageal reflux disease without esophagitis; Z86.73 Personal history of transient ischemic attack (TIA), and cerebral infarction without residual deficits; Z91.14 Patient's other noncompliance with medication regimen; Z87.19 Personal history of other diseases of the digestive system; Z93.3 Colostomy status; Z20.822 Contact with and (suspected) exposure to COVID-19
CPT/HCPCS: 36415; 71045; 80053; 81003; 83690; 84443; 85025; 87086; 99284